=== PATIENT | male | born 1995 | race African-American/Black ===

== ENCOUNTER 2021-08-22 22:36 | Emergency (ER) | payer BC, OTHER ==
[~2021-08-22] VITALS: Ht 175.3 cm; Wt 81.6 kg
[2021-08-23] MEDS ORDERED: LIDOCAINE 1%HCL (LOCAL ANESTH) 10 ML MDV ONE (02:45)
[2021-08-23] MEDS ORDERED: LIDOCAINE 1% HCL (LOCAL ANESTH.) INJ 20ML MDV IJ ONE (02:45)
[2021-08-23 04:16] VITALS: BP 118/79
[2021-08-23] MEDS ORDERED: HYDR-4902 PO (04:23)
== END 2021-08-23 04:36 | disposition home or self-care (01) ==
LOC: ER 22:36
DX: S63.264A Dislocation of metacarpophalangeal joint of right ring finger, initial encounter (principal); S63.266A Dislocation of metacarpophalangeal joint of right little finger, initial encounter; W22.8XXA Striking against or struck by other objects, initial encounter; Y93.89 Activity, other specified; Y92.89 Other specified places as the place of occurrence of the external cause; Y99.8 Other external cause status
CPT/HCPCS: 26700; 73130; 99284; J2001